=== PATIENT | male | born 1940 | race Caucasian/White ===

== ENCOUNTER 2017-09-02 17:48 | Emergency (ER) | payer BC, MEDICARE, OTHER ==
[~2017-09-02] VITALS: Ht 180.3 cm; Wt 100.0 kg
[~2017-09-02 17:48] MED LIST: ASPI81; CLOP75; LIPI40TA; TOPR50TA; VASO10TA8
[2017-09-02 18:05] VITALS: BP 175/81; PULSE 92; RESP 16; TEMP 98.2; O2SAT 96
--- NOTE | 2017-09-02 20:10 | PD ---
HPI Chief Complaint: Complaint Time Seen by Provider: 20:02 Travel History International Travel<30 days: No Contact w/Intl Traveler<30days: No Traveled to known affect area: No History of Present Illness HPI 77-year-old male is on Plavix and aspirin presents for evaluation of painless hematuria. Symptom onset yesterday morning. Reports the one episode of painless hematuria yesterday morning, none for the remainder of the day. He hydrated throughout yesterday and today, played golf today, and since this afternoon he has had several episodes of hematuria. He reports some pressure over his lower abdomen but denies pain. He denies flank pain, nausea or vomiting, chest pain, shortness of breath, dizziness, lightheadedness. He has no other complaints at this time. Primary care physician Dr. Hyde. COUNTS INCLUDE 234 BEDS AT THE [facility] Past Medical History Hx Anticoagulant Therapy: Yes Blood Disorders: No Cancer: No Cardiovascular Problems: Yes Chemotherapy: No Diminished Hearing: No Glaucoma: No Psychiatric: No Immunizations Current: Yes Radiation Therapy: No Sickle Cell Disease: No Tetanus Vaccination: Unknown Influenza Vaccination: No Past Surgical History Abdominal Surgery: No Arteriovenous Shunt: No Cardiac Surgery: Yes (CARDIAC STENT 2003) Coronary Stent: Yes Ear Surgery: No Endocrine Surgery: No Eye Surgery: No Genitourinary Surgery: No Gynecologic Surgery: No Insulin Pump: No Joint Replacement: No Neurologic Surgery: No Oral Surgery: No Thoracic Surgery: No Other Surgery: Yes (CARDIAC STENT 2003) Social History Alcohol Use: No Tobacco Use: No Substance Use: No Allergies-Medications (Allergen,Severity, Reaction): Coded Allergies: No Known Allergies (Verified Allergy, Severe, 09/02/17) Reported Meds & Prescriptions Reported Meds & Active Scripts Active Levaquin (Levofloxacin) 500 Mg Tablet 500 Mg PO DAILY 7 Days Reported Vasotec (Enalapril Maleate) 10 Mg Tab Toprol Xl (Metoprolol Succinate) 50 Mg Tabcr Lipitor (Atorvastatin Calcium) 40 Mg Tab Plavix (Clopidogrel Bisulfate) 75 Mg Tab Aspirin 81 Mg Tab Review of Systems Except as stated in HPI: all other systems reviewed are Neg Physical Exam Narrative GENERAL: Pleasant well-developed well-nourished male no acute distress SKIN: Warm and dry. HEAD: Atraumatic. Normocephalic. EYES: Pupils equal and round. No scleral icterus. No injection or drainage. ENT: No nasal bleeding or discharge. Mucous membranes pink and moist. NECK: Trachea midline. No JVD. CARDIOVASCULAR: Regular rate and rhythm. No murmur appreciated. RESPIRATORY: No accessory muscle use. Clear to auscultation. Breath sounds equal bilaterally. GASTROINTESTINAL: Abdomen soft, non-tender, nondistended. Hepatic and splenic margins not palpable. No CVA tenderness. examination reveals normal. Scrotum with descended testicles. 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 MUSCULOSKELETAL: No obvious deformities. No clubbing. No cyanosis. No edema. NEUROLOGICAL: Awake and alert. No obvious cranial nerve deficits. Motor grossly within normal limits. Normal speech. Data Data Last Documented VS Vital Signs Date Time Temp Pulse Resp B/P (MAP) Pulse Ox O2 Delivery O2 Flow Rate FiO2 09/02/17 18:05 98.2 92 16 175/81 (112) 96 Orders Orders Complete Blood Count With Diff (09/02/17 20:08) Basic Metabolic Panel (Bmp) (09/02/17 20:08) Act Partial Throm Time (Ptt) (09/02/17 20:08) Prothrombin Time / Inr (Pt) (09/02/17 20:08) Urinalysis - C+S If Indicated (09/02/17 20:08) Urine Culture (09/02/17 20:45) Ceftriaxone Inj (Rocephin Inj) (09/02/17 22:00) Labs Laboratory Tests Test 09/02/17 20:45 White Blood Count 7.9 TH/MM3 Red Blood Count 4.12 MIL/MM3 Hemoglobin 12.7 GM/DL Hematocrit 37.8 % Mean Corpuscular Volume 91.9 FL Mean Corpuscular Hemoglobin 31.0 PG Mean Corpuscular Hemoglobin Concent 33.7 % Red Cell Distribution Width 13.7 % Platelet Count 250 TH/MM3 Mean Platelet Volume 8.1 FL Neutrophils (%) (Auto) 64.8 % Lymphocytes (%) (Auto) 18.7 % Monocytes (%) (Auto) 11.6 % Eosinophils (%) (Auto) 2.4 % Basophils (%) (Auto) 2.5 % Neutrophils # (Auto) 5.1 TH/MM3 Lymphocytes # (Auto) 1.5 TH/MM3 Monocytes # (Auto) 0.9 TH/MM3 Eosinophils # (Auto) 0.2 TH/MM3 Basophils # (Auto) 0.2 TH/MM3 CBC Comment DIFF FINAL Differential Comment Prothrombin Time 10.7 SEC Prothromb Time International Ratio 1.1 RATIO Activated Partial Thromboplast Time 25.7 SEC Urine Color Red Urine Turbidity CLOUDY Urine pH 7.0 Urine Specific Tow 1.018 Urine Protein 100 mg/dL Urine Glucose (UA) NEG mg/dL Urine Ketones NEG mg/dL Urine Occult Blood LARGE Urine Nitrite POS Urine Bilirubin NEG Urine Urobilinogen LESS THAN 2 mg/dL Urine Leukocyte Esterase LARGE Urine RBC /hpf Urine WBC /hpf Urine Squamous Epithelial Cells 1 /hpf Urine Transitional Epithelial Cells 1 /hpf Urine Bacteria MOD /hpf Urine Mucus FEW /lpf Microscopic Urinalysis Comment CULTURE INDICATED Blood Urea Nitrogen 27 MG/DL Creatinine 1.81 MG/DL Random Glucose 96 MG/DL Calcium Level 9.3 MG/DL Sodium Level 136 MEQ/L Potassium Level 4.0 MEQ/L Chloride Level 104 MEQ/L Carbon Dioxide Level 21.0 MEQ/L Anion Gap 11 MEQ/L Estimat Glomerular Filtration Rate 37 ML/MIN [facility] Medical Decision Making Medical Screen Exam Complete: Yes Emergency Medical Condition: Yes Medical Record Reviewed: Yes Differential Diagnosis Hemorrhagic cystitis, renal stone, bladder malignancy, renal malignancy Narrative Course 77-year-old male with painless hematuria for 2 days. he appears well. Plan is for lab work, urinalysis. CBC reveals a hemoglobin of 12.7, BMP reveals a GFR of 37, these are pretty consistent with #record from 2006. Urinalysis suggestive of infectious process with positive nitrites, innumerable WBCs. Pending culture results he was given a dose of Rocephin here and he will be given a prescription for Levaquin. Recommended follow-up urinalysis in 1 week with his primary care physician to ensure the hematuria has resolved. Diagnosis Primary Impression: Hemorrhagic cystitis Additional Instructions: Medication as prescribed. Stay well hydrated and well-nourished. Follow-up in 1 week with primary care physician. Return for any emergent medical conditions. Med/Other Pt SpecificInfo: Prescription(s) given Scripts Levofloxacin (Levaquin) 500 Mg Tablet 500 MG PO DAILY for Infection for 7 Days, #7 TAB 0 Refills Prov: Jovany Kendrick MD 09/02/17 Disposition: 01 DISCHARGE HOME Condition: Stable Tian Young Sep 02, 2017 20:10
[2017-09-02 21:09] LABS: AUTOMATED NEUTROPHIL # 5.1 TH/MM3 (1.8-7.7); BASOPHIL # 0.2 TH/MM3 (0-0.2); BASOPHIL % 2.5 % (0.0-2.0); EOSINOPHIL # 0.2 TH/MM3 (0-0.4); EOSINOPHIL % 2.4 % (0.0-4.0); HEMATOCRIT 37.8 % (39.0-51.0); HEMOGLOBIN 12.7 GM/DL (13.0-17.0); LYMPH % 18.7 % (9.0-44.0); LYMPHOCYTE # 1.5 TH/MM3 (1.0-4.8); MEAN CELL VOLUME 91.9 FL (80.0-100.0); MEAN CORPUSCULAR HGB CONC 33.7 % (32.0-36.0); MEAN PLATELET VOLUME 8.1 FL (7.0-11.0); MONO % 11.6 % (0.0-8.0); MONOCYTE # 0.9 TH/MM3 (0-0.9); NEUT % 64.8 % (16.0-70.0); PLATELET COUNT 250 TH/MM3 (150-450); RED BLOOD COUNT 4.12 MIL/MM3 (4.50-5.90); RED CELL DISTRIBUTION WIDTH 13.7 % (11.6-17.2); WHITE BLOOD COUNT 7.9 TH/MM3 (4.0-11.0)
[2017-09-02 21:19] LABS: INTERNATIONAL NORMALIZED RATIO 1.1 RATIO; PROTHROMBIN TIME - PATIENT 10.7 SEC (9.8-11.6)
[2017-09-02 21:26] LABS: BACTERIA, URINE MOD /hpf; BILIRUBIN, URINE NEG (NEG); BLOOD, URINE LARGE (NEG); GLUCOSE,URINE NEG (NEG); KETONE, URINE NEG (NEG); MUCUS URINE FEW /lpf (OCC); NITRITE,URINE POS (NEG); SQUAMOUS EPITHELIAL CELL URINE 1 /hpf (0-5); TRANSITIONAL EPI CELLS, URINE 1 /hpf; URINE COLOR Red (YELLW/STRAW); URINE LEUKOCYTE ESTERASE LARGE (NEG)
[2017-09-02 21:38] LABS: CALCIUM 9.3 MG/DL (8.5-10.1); CREATININE 1.81 MG/DL (0.60-1.30)
[2017-09-02] MEDS ORDERED: cefTRIAXone INJ 1,000 MG in SODIUM CHLORIDE 0.9% INJ 100 ML IV ONE (22:00)
[2017-09-02] MEDS ORDERED: LEVA500T33 PO (22:30)
== END 2017-09-02 22:58 | disposition home or self-care (01) ==
LOC: NEPD 17:48
DX: N30.81 Other cystitis with hematuria (principal); B96.4 Proteus (mirabilis) (morganii) as the cause of diseases classified elsewhere; Z79.01 Long term (current) use of anticoagulants
CPT/HCPCS: 80048; 81001; 85025; 85610; 85730; 87077; 87086; 87186; 96374; 99284; J0696